=== PATIENT | female | born 1950 | race Two or more races ===

== ENCOUNTER 2022-08-05 09:18 | Emergency (ER) | payer OTHER ==
[~2022-08-05] VITALS: Ht 157.5 cm; Wt 74.4 kg
[2022-08-05] MEDS ORDERED: TOPROL XL25 M1 PO (09:37)
== END 2022-08-05 11:38 | disposition home or self-care (01) ==
LOC: ER 09:18
DX: S09.90XA Unspecified injury of head, initial encounter (principal); W19.XXXA Unspecified fall, initial encounter; Y93.9 Activity, unspecified; Y92.9 Unspecified place or not applicable

== ENCOUNTER 2023-11-04 11:10 | Emergency (ER) | payer OTHER ==
[~2023-11-04] VITALS: Ht 157.5 cm; Wt 74.8 kg
[~2023-11-04 11:10] MED LIST: TOPROL XL25 M1 PO
== END 2023-11-04 15:29 | disposition home or self-care (01) ==
LOC: ER
DX: S92.811A Other fracture of right foot, initial encounter for closed fracture (principal); X58.XXXA Exposure to other specified factors, initial encounter; Y93.89 Activity, other specified; Y92.098 Other place in other non-institutional residence as the place of occurrence of the external cause; Y99.8 Other external cause status; M79.671 Pain in right foot; Z88.6 Allergy status to analgesic agent; Z91.013 Allergy to seafood; Z91.041 Radiographic dye allergy status